=== PATIENT | male | born 1955 | race Hispanic/Latino ===

== ENCOUNTER 2019-01-04 14:41 | Inpatient (IN) | payer MEDICAID ==
[~2019-01-04] VITALS: Ht 185.4 cm; Wt 97.8 kg
[2019-01-04 15:53] LABS: BASOPHILS % (AUTO) 0.4 % (0.0-5.0); EOSINOPHILS % (AUTO) 6.9 % (0.0-8.0); HEMATOCRIT 36.5 % (42-54); LYMPHOCYTES % (AUTO) 15.6 % (21.0-51.0); MEAN CORPUSCULAR HGB CONC 32.8 g/dL (32.0-36.0); MEAN CORPUSCULAR VOLUME 91.5 fL (79-99); MONOCYTES % (AUTO) 8.7 % (3.0-13.0); NEUTROPHILS % (AUTO) 68.4 % (40.0-77.0); PLATELET COUNT (AUTO) 253 K/uL (130-400); RED BLOOD CELL COUNT(AUTO) 3.99 MIL/uL (4.50-6.20); RED CELL DISTRIBUTION WIDTH 13.3 % (11.0-15.5); WHITE BLOOD COUNT (AUTO) 8.2 K/uL (4.8-10.8)
[2019-01-04 16:02] LABS: CREATININE 1.5 mg/dL (0.5-1.5); POTASSIUM 4.6 mmol/L (3.5-5.1)
[2019-01-04] MEDS ORDERED: MORPHINE SULFATE 2 MG/ML 1ML SYG IV PRN (16:45)
[2019-01-04] MEDS ORDERED: LACTULOSE 20 GM/30 ML UDCUP PO PRN (16:45)
[2019-01-04] MEDS ORDERED: VANCOMYCIN PROTOCOL PER PHARMACY IV PRN (16:45)
[2019-01-04] MEDS ORDERED: MORPHINE SULFATE 4 MG/1ML SYG IV PRN (16:45)
[2019-01-04] MEDS ORDERED: VANCOMYCIN 1GM+NS 250ML 250 ML IV SCH (16:45)
[2019-01-04] MEDS ORDERED: ACETAMINOPHEN 325 MG TAB PO PRN ×2 (16:45)
[2019-01-04] MEDS ORDERED: ONDANSETRON HCL 4 MG/2 ML VIAL IV PRN (16:45)
[2019-01-04] MEDS ORDERED: ZOSYN 3.375GM+NS 50ML 50 ML IV ONE (17:06)
[2019-01-04] MEDS ORDERED: HYDRALAZINE HCL 20 MG/ML VIAL ONE (17:11)
[2019-01-04] MEDS ORDERED: COMPOUND IV REFRIGERATED 1 EACH IVSOLN MISC PRN (17:30)
[2019-01-04 17:34] LABS: HEMOGLOBIN A1C 8.5 % (4.0-6.0)
[2019-01-04 18:05] VITALS: BP 171/87
--- NOTE | 2019-01-04 18:15 | NUR ---
Patient arrived from ER in stable condition. Bed placed in the lowest position. Call light placed within reach. Pending home medications to bring. Covered wound noted to left 2nd toe. wound pics obtained. IV patent to Left AC.
[2019-01-04 20:00] VITALS: BP 190/123
[2019-01-04] MEDS: VANCOMYCIN 1.5 GM in SODIUM CHLORIDE 0.9% 250 ML IV SCH (20:45)
[2019-01-04] MEDS: ZOSYN 3.375GM+NS 50ML 50 ML IV SCH (20:45)
[2019-01-04] MEDS: FAMOTIDINE/PF 20 MG/2 ML VIAL IV SCH (20:45)
[2019-01-04] MEDS ORDERED: LORAZEPAM 2 MG/ML 1 ML VIAL IVP PRN (21:00)
[2019-01-04] MEDS ORDERED: HYDRALAZINE HCL 20 MG/ML VIAL IV PRN (23:00)
[2019-01-04 23:09] VITALS: BP 173/99
[2019-01-05] VITALS (22 sets, daily range): BP systolic 112–202; BP diastolic 68–111
[2019-01-05] MEDS: LOSARTAN 50 MG TABLET PO SCH ×2 (00:43→09:14)
[2019-01-05] MEDS: METOPROLOL TARTRATE 25 MG TAB PO SCH ×3 (00:43→22:11)
[2019-01-05] MEDS: INSULIN GLARGINE 100 UNITS/ML 10 ML VIAL SQ SCH ×2 (00:46→21:00)
[2019-01-05] MEDS: ZOSYN 3.375GM+NS 50ML 50 ML IV SCH ×3 (04:59→22:10)
[2019-01-05] MEDS: HYDRALAZINE HCL 20 MG/ML VIAL IV PRN (04:59)
[2019-01-05 05:26] LABS: HEMATOCRIT 34.3 % (42-54); MEAN CORPUSCULAR HEMOGLOBIN 30.4 pg (27.0-33.0); MEAN CORPUSCULAR HGB CONC 33.8 g/dL (32.0-36.0); MEAN CORPUSCULAR VOLUME 89.8 fL (79-99); PLATELET COUNT (AUTO) 222 K/uL (130-400); RED BLOOD CELL COUNT(AUTO) 3.82 MIL/uL (4.50-6.20); RED CELL DISTRIBUTION WIDTH 13.1 % (11.0-15.5); WHITE BLOOD COUNT (AUTO) 7.3 K/uL (4.8-10.8)
[2019-01-05 05:31] LABS: ALBUMIN 2.8 g/dL (3.5-5.0); CREATININE 1.4 mg/dL (0.5-1.5); POTASSIUM 4.2 mmol/L (3.5-5.1)
[2019-01-05 06:24] LABS: ERYTHROCYTE SEDIMENTATION RATE 56 MM/HR (0-20)
[2019-01-05] MEDS: INSULIN LISPRO 100 UNIT/ML 3ML SQ SCH ×7 (07:30→21:00)
[2019-01-05] MEDS: VANCOMYCIN 1.5 GM in SODIUM CHLORIDE 0.9% 250 ML IV SCH ×2 (09:13→22:15)
[2019-01-05] MEDS: ENOXAPARIN SODIUM 40 MG/0.4 ML SYRINGE SQ SCH (09:14)
[2019-01-05] MEDS: FAMOTIDINE/PF 20 MG/2 ML VIAL IV SCH ×2 (09:14→22:10)
[2019-01-05] MEDS: AMLODIPINE BESYLATE 5 MG TAB PO SCH (09:14)
[2019-01-05] MEDS ORDERED: DIPH,PERTUSS(ACELL),TET VAC/PF 0.5 ML VIAL IM SCH (11:30)
--- NOTE | 2019-01-05 12:12 | NUR ---
DCP CM met with pt discussed dc plans. Pt is independent prior to admission, lives at home with spouse. Has a cane. Denies any other equipments/services. Pt feels safe to go back home, spouse able to assist with transportation and needs as necessary. DC plan to home once stable. CM to cont to follow up. Addendum: 01/05/19 at 1213 by TIANNA WOODY LVN CM Amended: Links added.
[2019-01-05] MEDS ORDERED: SODIUM CHLORIDE 0.9% 1000ML 1,000 ML IV ONE (18:17)
[2019-01-05] MEDS ORDERED: BUPIVACAINE/PF 0.5% 30ML VIAL ONE (18:25)
[2019-01-05] MEDS ORDERED: LIDOCAINE HCL 1% 20 ML VIAL ONE (18:25)
[2019-01-05] MEDS ORDERED: MIDAZOLAM HCL 1 MG/ML 2ML VIAL ONE (18:57)
[2019-01-05] MEDS ORDERED: PROPOFOL 10 MG/ML 20ML VIAL IV ONE ×2 (18:57→19:19)
[2019-01-06] VITALS (12 sets, daily range): BP systolic 107–173; BP diastolic 41–106
[2019-01-06] MEDS: ZOSYN 3.375GM+NS 50ML 50 ML IV SCH ×3 (04:52→21:28)
[2019-01-06 05:58] LABS: HEMATOCRIT 37.2 % (42-54); MEAN CORPUSCULAR HEMOGLOBIN 29.9 pg (27.0-33.0); MEAN CORPUSCULAR HGB CONC 33.1 g/dL (32.0-36.0); MEAN CORPUSCULAR VOLUME 90.3 fL (79-99); PLATELET COUNT (AUTO) 287 K/uL (130-400); RED BLOOD CELL COUNT(AUTO) 4.12 MIL/uL (4.50-6.20); RED CELL DISTRIBUTION WIDTH 13.2 % (11.0-15.5); WHITE BLOOD COUNT (AUTO) 9.3 K/uL (4.8-10.8)
[2019-01-06] MEDS: INSULIN LISPRO 100 UNIT/ML 3ML SQ SCH ×6 (05:59→21:44)
[2019-01-06 06:12] LABS: CREATININE 1.3 mg/dL (0.5-1.5); POTASSIUM 4.9 mmol/L (3.5-5.1)
[2019-01-06] MEDS: AMLODIPINE BESYLATE 5 MG TAB PO SCH (11:16)
[2019-01-06] MEDS: LOSARTAN 50 MG TABLET PO SCH (11:16)
[2019-01-06] MEDS: FAMOTIDINE/PF 20 MG/2 ML VIAL IV SCH ×2 (11:17→21:28)
[2019-01-06] MEDS: ENOXAPARIN SODIUM 40 MG/0.4 ML SYRINGE SQ SCH (11:18)
[2019-01-06] MEDS: METOPROLOL TARTRATE 25 MG TAB PO SCH ×2 (11:50→21:45)
[2019-01-06] MEDS: VANCOMYCIN 1.25 GM in SODIUM CHLORIDE 0.9% 250 ML IV SCH ×2 (12:04→21:28)
[2019-01-06] MEDS ORDERED: METF-526 PO (18:57)
[2019-01-06] MEDS ORDERED: ATOR20TA65 PO (18:57)
[2019-01-06] MEDS ORDERED: LISI40TA4 PO (18:57)
--- NOTE | 2019-01-06 20:17 | NUR ---
Pt. Update Dr. Almaguer paged, he call back at this time and stated he will be seeing pt tomorrow. Pt notified and all care team members notified and updated.
[2019-01-06] MEDS: INSULIN GLARGINE 100 UNITS/ML 10 ML VIAL SQ SCH (21:00)
[2019-01-07 03:05] VITALS: BP 145/88
[2019-01-07] MEDS: ZOSYN 3.375GM+NS 50ML 50 ML IV SCH ×3 (04:17→21:18)
[2019-01-07 05:58] LABS: HEMATOCRIT 36.5 % (42-54); MEAN CORPUSCULAR HEMOGLOBIN 30.1 pg (27.0-33.0); MEAN CORPUSCULAR HGB CONC 33.2 g/dL (32.0-36.0); MEAN CORPUSCULAR VOLUME 90.7 fL (79-99); NUCLEATED RED BLOOD CELLS 0.1 % (0.0-0.19); PLATELET COUNT (AUTO) 244 K/uL (130-400); RED BLOOD CELL COUNT(AUTO) 4.02 MIL/uL (4.50-6.20); RED CELL DISTRIBUTION WIDTH 13.3 % (11.0-15.5); WHITE BLOOD COUNT (AUTO) 8.5 K/uL (4.8-10.8)
[2019-01-07 06:12] LABS: CREATININE 1.5 mg/dL (0.5-1.5); POTASSIUM 4.6 mmol/L (3.5-5.1)
[2019-01-07 06:36] VITALS: BP 153/86
[2019-01-07] MEDS: INSULIN LISPRO 100 UNIT/ML 3ML SQ SCH ×7 (07:30→21:23)
[2019-01-07] MEDS ORDERED: SODIUM CHLORIDE 0.9% 1000ML 1,000 ML IV SCH (07:52)
[2019-01-07] MEDS ORDERED: DiphenhydrAMINE HCL 50 MG/ML VIAL IVP PRN (08:00)
--- NOTE | 2019-01-07 08:32 | NUR ---
DR. CESARIO LIMA HERE TO SEE PATIENT. ASKED ME TO REMOVED LEFT FOOT DRESSING SO HE COULD EVALUATE AMPUTATION SITE. MD SPOKE TO PATIENT REGARDING PLANNED ANGIOGRAM FOR TOMORROW. AFTER I PLACED NEW LEFT FOOT INCISION DRESSING, APPLIED BETADINE, 4X4 GAUZE, WRAPPED IN KERLIX, SECURED WITH TAPE, REAPPLIED VITO WRAP AND SURGICAL BOOT. Addendum: 01/07/19 at 1200 by CIELO RUSSELL RN RN WHEN DR. NASSAR WAS HERE WITH PATIENT, MD TOLD PATIENT DR. CHILDRESS WILL ASK FOR HIS RECOMMENDATIONS REGARDING CIRCULATORY STATUS TO SEE IF PATIENT WOULD BE A CANDIDATE FOR ANY FURTHER PROCEDURES. AFTER DR. NASSAR LEFT, PATIENT APPEARED UPSET AND TOLD ME "I DON'T WANT ANOTHER AMPUTATION. DR. CHILDRESS TOLD ME IT WOULD BE THE TOE AND THATS IT!" I TOLD PATIENT THAT RIGHT NOW NO OTHER SURGICAL PROCEDURES ARE PLANNED, BUT IT IS A GOOD IDEA TO PROCEED WITH DR. CHEW' PLANNED ANGIOGRAM TO DETERMINE IF PATIENT HAS GOOD CIRCULATION TO LEFT LEG. PATIENT REPLIED "I'LL HAVE TO THINK ABOUT IT, RIGHT NOW I DON'T KNOW YET."
[2019-01-07 08:43] LABS: INR 0.92 (0.85-1.15); PARTIAL THROMBOPLASTIN TIME 31.4 SEC (26.3-35.5); PROTHROMBIN TIME 9.7 SEC (9.6-11.6)
[2019-01-07] MEDS: HYDROCODONE/ACETAMINOPHEN 5/325 MG TAB PO PRN ×2 (10:15→18:09)
[2019-01-07] MEDS: METOPROLOL TARTRATE 25 MG TAB PO SCH ×2 (10:16→21:19)
[2019-01-07] MEDS: VANCOMYCIN 1.25 GM in SODIUM CHLORIDE 0.9% 250 ML IV SCH ×2 (10:16→21:18)
[2019-01-07] MEDS: AMLODIPINE BESYLATE 5 MG TAB PO SCH (10:16)
[2019-01-07] MEDS: LOSARTAN 50 MG TABLET PO SCH (10:16)
[2019-01-07] MEDS: ENOXAPARIN SODIUM 40 MG/0.4 ML SYRINGE SQ SCH (10:18)
[2019-01-07 11:54] VITALS: BP 150/78
--- NOTE | 2019-01-07 13:10 | NUR ---
CONTINUITY OF CARE Received report from nurse Mckeon at 1150. Visited patient after that. Patient in bed in no distress. Family at bedside. Patient denied any needs or questions. Patient has left surgical shoe and uses walker to ambulate; he was informed to please call nurses to avoid any possible falls. Verbalized and demonstrated understanding.
[2019-01-07 16:00] VITALS: BP 173/84
[2019-01-07 19:20] VITALS: BP 171/89
--- NOTE | 2019-01-07 20:11 | NUR ---
REFUSAL OF PROCEDURE BY DR. ALMAGUER Patient states he will not have any procedure that Dr. Almaguer is recommending. That he will talk to Dr. lance tomorrow.
[2019-01-07] MEDS: INSULIN GLARGINE 100 UNITS/ML 10 ML VIAL SQ SCH (21:00)
[2019-01-07] MEDS: FAMOTIDINE 20MG TAB 20 MG TAB PO SCH (21:19)
[2019-01-07 23:51] VITALS: BP 157/82
[2019-01-08 03:42] VITALS: BP 170/98
[2019-01-08] MEDS: HYDRALAZINE HCL 20 MG/ML VIAL IV PRN (03:44)
[2019-01-08 04:41] LABS: MEAN CORPUSCULAR HEMOGLOBIN 29.5 pg (27.0-33.0); MEAN CORPUSCULAR VOLUME 89.4 fL (79-99); PLATELET COUNT (AUTO) 260 K/uL (130-400); RED BLOOD CELL COUNT(AUTO) 3.91 MIL/uL (4.50-6.20); RED CELL DISTRIBUTION WIDTH 12.6 % (11.0-15.5); WHITE BLOOD COUNT (AUTO) 8.3 K/uL (4.8-10.8)
[2019-01-08 04:50] LABS: CREATININE 1.2 mg/dL (0.5-1.5); POTASSIUM 3.9 mmol/L (3.5-5.1)
[2019-01-08] MEDS: ZOSYN 3.375GM+NS 50ML 50 ML IV SCH (04:59)
[2019-01-08 05:00] VITALS: BP 146/87
[2019-01-08] MEDS: INSULIN LISPRO 100 UNIT/ML 3ML SQ SCH ×5 (05:24→16:30)
--- NOTE | 2019-01-08 06:49 | NUR ---
Pt Update Dr. Almaguer notified this morning about pt not wanting to undergo CT angio by Service Tester for PVD. Refusal form signed in chart, heavy equipment supervisor notified, and scheduling team updated accordingly.
[2019-01-08 07:30] VITALS: BP 144/87
[2019-01-08] MEDS: LOSARTAN 50 MG TABLET PO SCH (09:55)
[2019-01-08] MEDS: AMLODIPINE BESYLATE 5 MG TAB PO SCH (09:55)
[2019-01-08] MEDS: METOPROLOL TARTRATE 25 MG TAB PO SCH (09:56)
[2019-01-08] MEDS: ENOXAPARIN SODIUM 40 MG/0.4 ML SYRINGE SQ SCH (09:56)
[2019-01-08] MEDS: FAMOTIDINE 20MG TAB 20 MG TAB PO SCH (09:56)
[2019-01-08] MEDS: HYDROCODONE/ACETAMINOPHEN 5/325 MG TAB PO PRN (10:05)
--- NOTE | 2019-01-08 11:26 | NUR ---
SPOKE WITH PHARMACIST TERRANCE REGARDING VANCO TROUGH 21.2..PER TERRANCE OK TO CONT TO GIVE
[2019-01-08] MEDS: VANCOMYCIN 1.25 GM in SODIUM CHLORIDE 0.9% 250 ML IV SCH (11:29)
[2019-01-08] MEDS ORDERED: CEPHALEXIN 500 MG CAPSULE PO SCH (12:45)
[2019-01-08 13:31] VITALS: BP 137/72
[2019-01-08] MEDS ORDERED: METF-526 PO (14:31)
[2019-01-08] MEDS ORDERED: METO25 PO (14:33)
[2019-01-08] MEDS ORDERED: LOSA50TA2 PO (14:33)
[2019-01-08 16:00] VITALS: BP 128/76
== END 2019-01-08 19:37 | disposition home or self-care (01) | DRG 305 ==
LOC: EDH 14:41 → EDHIP 14:42 → 3DH 18:06
PROVIDERS: ADMIT Internal Medicine; ATTEND Internal Medicine
PROC: 0QBP0ZZ Excision of Left Metatarsal, Open Approach (ICD-10-PCS; 2019-01-05)
PROC: 3E0234Z Introduction of Serum, Toxoid and Vaccine into Muscle, Percutaneous Approach (ICD-10-PCS; 2019-01-05)
PROC: 0Y6N0ZB Detachment at Left Foot, Partial 2nd Ray, Open Approach (ICD-10-PCS; principal; 2019-01-05 19:00)
DX: E11.69 Type 2 diabetes mellitus with other specified complication (principal); E44.0 Moderate protein-calorie malnutrition; E11.52 Type 2 diabetes mellitus with diabetic peripheral angiopathy with gangrene; E11.65 Type 2 diabetes mellitus with hyperglycemia; M86.9 Osteomyelitis, unspecified; E11.621 Type 2 diabetes mellitus with foot ulcer; L03.116 Cellulitis of left lower limb; L97.529 Non-pressure chronic ulcer of other part of left foot with unspecified severity; I10 Essential (primary) hypertension; E78.2 Mixed hyperlipidemia; E66.9 Obesity, unspecified; B95.8 Unspecified staphylococcus as the cause of diseases classified elsewhere; L02.612 Cutaneous abscess of left foot; L03.032 Cellulitis of left toe; M21.372 Foot drop, left foot; Z68.28 Body mass index [BMI] 28.0-28.9, adult; Z23 Encounter for immunization; Z86.73 Personal history of transient ischemic attack (TIA), and cerebral infarction without residual deficits; Z83.3 Family history of diabetes mellitus; Z82.3 Family history of stroke; Z82.49 Family history of ischemic heart disease and other diseases of the circulatory system
CPT/HCPCS: 36415; 73630; 73718; 80048; 80202; 82040; 82948; 83036; 85025; 85027; 85610; 85651; 85730; 86140; 87070; 87076; 87077; 87116; 87186; 87205; 87206; 90715; 93925; 97039; 99205; G0378; J0360; J1650; J2250; J2270; J2543; J2704; J3370; J3490; J7030

== ENCOUNTER → 2019-01-04 | Outpatient (CLI) | payer MEDICAID ==
[~2019-01-04] MED LIST: ATOR20TA65 PO; HONEY 1 APPL/ML TUBE TP ONE; LISI40TA4 PO; METF-526 PO
[2019-01-04 15:37] VITALS: BP 180/98
--- NOTE | 2019-01-04 15:57 | NUR ---
Patient was assessed by Dr. Mirtha Kingston. Options for treatment discussed with patient and patient opted to be sent to hospital for treatment of infection. Dressing applied as ordered and patient was wheeled to ED for evaluation. Addendum: 01/04/19 at 1559 by KATELYN HOOPER RN/CLIFFORD Amended: Links added.
== END | disposition home or self-care (01) ==
LOC: WHH 13:10
PROVIDERS: ATTEND Surgery
DX: E11.621 Type 2 diabetes mellitus with foot ulcer (principal); L97.521 Non-pressure chronic ulcer of other part of left foot limited to breakdown of skin; I10 Essential (primary) hypertension; E11.51 Type 2 diabetes mellitus with diabetic peripheral angiopathy without gangrene; E11.36 Type 2 diabetes mellitus with diabetic cataract; E78.2 Mixed hyperlipidemia
CPT/HCPCS: 82948; 99205